=== PATIENT | male | born 1970 | race Caucasian/White ===

== ENCOUNTER → 2016-06-11 | Outpatient (CLI) | payer OTHER | LOC: EXRD 12:58 | DX: R10.12 Left upper quadrant pain (principal); R22.31 Localized swelling, mass and lump, right upper limb; R07.9 Chest pain, unspecified | CPT/HCPCS: 71020 ==

== ENCOUNTER → 2016-06-18 | Outpatient (CLI) | payer OTHER | LOC: KOH-I 10:02 → US 10:02 → KOH-I 10:30 | DX: R10.12 Left upper quadrant pain (principal); R22.31 Localized swelling, mass and lump, right upper limb; M79.621 Pain in right upper arm | CPT/HCPCS: 76641-RT; 76700 ==

== ENCOUNTER → 2016-08-01 | Outpatient (CLI) | payer OTHER | LOC: MRI 07-15 10:00 → CT 08:24 → MRI 09:00 | DX: R22.31 Localized swelling, mass and lump, right upper limb (principal) | CPT/HCPCS: 71260; J7050; Q9962 ==